=== PATIENT | male | born 1975 | race Caucasian/White ===

== ENCOUNTER 2019-06-12 10:26 | Emergency (ER) | payer MEDICAID | END 2019-06-12 12:18 | disposition home or self-care (01) | LOC: E/R 10:26 | DX: R06.02 Shortness of breath (principal); R40.2142 Coma scale, eyes open, spontaneous, at arrival to emergency department; R40.2362 Coma scale, best motor response, obeys commands, at arrival to emergency department | CPT/HCPCS: 71045; 93005; 99284-25 ==